=== PATIENT | female | born 1945 | race Caucasian/White ===

== ENCOUNTER 2016-08-18 10:19 | Outpatient (CLI) | payer MEDICARE, BC ==
--- NOTE | 2016-08-18 12:51 | XRAY Report ---
THREE VIEW LEFT FOOT: 08/18/2016 CLINICAL INDICATION: Pain. FINDINGS: AP, lateral, and oblique views of the left foot demonstrate mild osteoarthritis of the 1st metatarsophalangeal joint. A small plantar calcaneal spur is present. There is no evidence of acute fracture or dislocation. IMPRESSION: MILD DEGENERATIVE CHANGES. NO EVIDENCE OF FRACTURE. JOB #: [id number] EXT JOB #:[id number]
--- NOTE | 2016-08-18 13:28 | XRAY Report ---
RIGHT HIP AND PELVIS: 08/18/2016 CLINICAL INDICATION: Pain. FINDINGS: Frontal view of the hips and pelvis and frogleg lateral view of the right hip demonstrate postoperative changes in the soft tissues. There is no evidence of acute fracture or dislocation. Mil d right hip osteoarthritis is noted. IMPRESSION: MILD OSTEOARTHRITIS. JOB #: [id number] EXT JOB #:[id number]
== END 2016-08-18 10:20 | disposition home or self-care (01) ==
LOC: DI.S 10:19
PROVIDERS: ATTEND Internal Medicine
DX: M16.11 Unilateral primary osteoarthritis, right hip (principal); M19.072 Primary osteoarthritis, left ankle and foot

== ENCOUNTER 2022-02-08 14:57 | Outpatient (CLI) | payer MEDICARE, BC | END 2022-02-08 14:58 | disposition home or self-care (01) | LOC: DI 14:57 | PROVIDERS: ATTEND Registered Nurse | DX: I77.810 Thoracic aortic ectasia (principal) | CPT/HCPCS: 93306 ==